=== PATIENT | male | born 1980 | race Caucasian/White ===

== ENCOUNTER 2017-03-29 09:55 | Emergency (ER) | payer SELFPAY ==
[2017-03-29 11:15] VITALS: BP 119/80
--- NOTE | 2017-03-29 11:18 | UC ---
Back Pain HPI - History of Current Complaint Chief Complaint: UCBackPain Stated Complaint: BACK PAIN Time Seen by Provider: 03/29/17 11:04 Hx Obtained From: Patient Onset/Duration: Gradual Onset Timing: Constant Severity Initially: Moderate Severity Currently: Severe Back Pain: Is Discrete @ - Left lower back. Character: Dull, Aching Aggravating: Movement, Bending Alleviating: Position Associated Signs And Symptoms: Negative: Swelling, Redness, Bruising, Fever, Weakness, Numbness, Tingling, Bladder Incontinence, Bowel Incontinence - no saddle anesthesias - Allergies/Home Medications Allergies/Adverse Reactions: Allergies Allergy/AdvReac Type Severity Reaction Status Date / Time No Known Allergies Allergy Verified 03/29/17 10:54 Home Medications: Home Medications Ibuprofen [Advil] 800 mg PO Q8HR PRN 03/29/17 [History Confirmed 03/29/17] PMH/Surg Hx/FS Hx/Imm Hx Previously Healthy: No - chronic intermittent low back pain. Endocrine History Of: Denies: Diabetes - Surgical History Surgical History: Yes Surgery Procedure, Year, and Place: Right Knee Arthoscopy 2007 - Family History Known Family History: Positive: Other - no related back disease. - Social History Alcohol Use: None Substance Use Type: None Smoking Status (MU): Never Smoked Tobacco Review of Systems All Other Systems Reviewed And Are Negative: Yes Physical Exam Triage Information Reviewed: Yes Appearance: Well-Appearing, No Pain Distress, Well-Nourished Vital Signs: Initial Vital Signs Temp 98.6 F 03/29/17 10:47 Pulse 71 03/29/17 10:47 Resp 14 03/29/17 10:47 BP 119/80 03/29/17 10:47 Pulse Ox 99 03/29/17 10:47 Vital Signs Reviewed: Yes Eyes: Positive: Conjunctiva Clear. Negative: Conjunctiva Inflamed ENT Exam: Normal Neck exam: Normal Respiratory Exam: Normal Cardiovascular Exam: Normal Abdominal Exam: Normal Musculoskeletal Exam: Other - No midline spine percussion tenderness. there is pain with left straight leg raise. he is able to toe and heel raise. He has pain with back flexion. Musculoskeletal: Positive: Strength Intact, ROM Intact, No Edema Neurological Exam: Normal Neurological: Positive: Alert, Muscle Tone Normal. Negative: Fatigued Skin Exam: Normal Skin: Negative: rashes Back Pain Course/Dx - Differential Dx/Diagnosis Differential Diagnosis/HQI/PQRI: Aneurysm, Arthritis, Cauda Equina Syndrome, Compressive Cord Syndrome, Epidural Abscess, Fracture, Herniated Disc, Neoplasm , Osteomyelitis, Osteoporosis, Septic Arthritis, Strain, Sprain Provider Diagnoses: low back pain Discharge - Discharge Plan Condition: Good Disposition: HOME Prescriptions: Cyclobenzaprine TAB* [Flexeril 10 MG TAB*] 10 mg PO BID PRN #20 tab PRN Reason: Pain Naproxen TAB* [Naprosyn 250 mg TAB*] 500 mg PO Q8H PRN #20 tab PRN Reason: Pain Patient Education Materials: Back Pain (ED), Lower Back Exercises (ED) Forms: *Work Release Referrals: Harlan Pierson MD [Medical Doctor] -
== END 2017-03-29 11:24 | disposition home or self-care (01) ==
LOC: UCCORT 09:55
DX: M54.5 Low back pain (principal)
CPT/HCPCS: 99202; G0463